=== PATIENT | female | born 1960 | race Caucasian/White ===

== ENCOUNTER 2016-05-25 21:08 | Inpatient (IN) | payer OTHER ==
[~2016-05-25] VITALS: Ht 167.6 cm; Wt 90.5 kg
[~2016-05-25 21:08] MED LIST: IBUP100T33 PO
[2016-05-25] MEDS ORDERED: ACETAMINOPHEN 325 MG TAB PO STA (22:17)
[2016-05-25] MEDS ORDERED: CEFTRIAXONE 1 GM/50 ML (PMX) 50 ML IVPB STA (22:17)
[2016-05-25] MEDS ORDERED: SODIUM CHLORIDE 0.9% 1L BAG IV* STA (22:17)
[2016-05-25] MEDS ORDERED: HYDROmorphONE 1 MG/ML SYG IV STA (22:51)
[2016-05-25] MEDS ORDERED: SOD CHLORIDE 0.9% 1,000 ML IV STA (22:51)
[2016-05-25] MEDS ORDERED: ONDANSETRON 4 MG INJ IV STA (22:51)
[2016-05-25 22:58] LABS: ADD UMIC YES; URINE BILIRUBIN (Dip) NEGATIVE (NEGATIVE); URINE BLOOD (Dip) TRACE (NEGATIVE); URINE GLUCOSE (Dip) NEGATIVE (NEGATIVE); URINE KETONES (Dip) TRACE (NEGATIVE); URINE LEUKOCYTE ESTERASE (Dip) NEGATIVE (NEGATIVE); URINE NITRITE (Dip) NEGATIVE (NEGATIVE); URINE TOTAL PROTEIN (Dip) TRACE (NEGATIVE); URINE UROBILINOGEN (Dip) 1.0 E.U./dL (0.1-1.0)
[2016-05-25] MEDS ORDERED: ERTAPENEM SODIUM 1 GM in SOD CHLORIDE 0.9% 100 ML IVPB ONE (23:00)
[2016-05-25 23:06] LABS: INR 1.1; PROTIME 14.2 Sec (12.2-14.2); PT RATIO 1.1
[2016-05-25 23:07] LABS: PARTIAL THROMBOPLASTIN TIME 33.2 Sec (25.0-35.0)
[2016-05-25 23:08] LABS: BACTERIA,URINE FEW; URINE COLOR YELLOW (YELLOW); URINE RBCS 0-2 /HPF (0)
[2016-05-25 23:18] LABS: BASOPHILS % 0.3 % (0.0-2.0); EOSINOPHILS # 0.2 10^3/ul (0.0-0.5); EOSINOPHILS % 1.6 % (0.0-7.0); HEMATOCRIT 39.7 % (37.0-47.0); HEMOGLOBIN 13.4 g/dl (12.0-16.0); LYMPHOCYTES # 2.6 10^3/ul (0.8-2.9); LYMPHOCYTES % 17.3 % (15.0-51.0); MEAN CORPUSCULAR HEMOGLOBIN 29.9 pg (29.0-33.0); MEAN CORPUSCULAR HGB CONC 33.9 g/dl (32.0-37.0); MEAN CORPUSCULAR VOLUME 88.3 fl (82.0-101.0); MEAN PLATELET VOLUME 9.9 fl (7.4-10.4); MONOCYTE # 1.2 10^3/ul (0.3-0.9); MONOCYTES % 8.1 % (0.0-11.0); NEUTROPHILS % 72.7 % (39.0-77.0); PLATELET COUNT 234 10^3/UL (140-440); RED BLOOD COUNT 4.49 10^6/ul (4.20-5.40); RED CELL DISTRIBUTION WIDTH 13.6 % (11.5-14.5); UNCORRECTED WBC 15.1 10^3/ul (4.8-10.8); WHITE BLOOD COUNT 15.1 10^3/ul (4.8-10.8)
[2016-05-25 23:21] LABS: TROPONIN-I < 0.012 ng/ml (0.00-0.12)
[2016-05-25 23:24] LABS: CONDITION 1
[2016-05-25 23:28] LABS: CHLORIDE 103 mmol/L (97-110); POTASSIUM 3.9 mmol/L (3.5-5.1); SODIUM 141 mmol/L (135-144)
[2016-05-25 23:30] LABS: ANION GAP 15 (8-16); BILIRUBIN,INDIRECT 0.6 mg/dl (0-1.1); BILIRUBIN,TOTAL 0.6 mg/dl (0.2-1.3); CARBON DIOXIDE 27 mmol/L (21-31); CREATININE 0.73 mg/dl (0.44-1.00)
[2016-05-25 23:31] LABS: ALANINE AMINOTRANSFERASE 16 IU/L (13-69); ALBUMIN/GLOBULIN RATIO 1.02; ALKALINE PHOSPHATASE 70 IU/L (42-121); ASPARTATE AMINO TRANSFERASE 14 IU/L (15-46); BLOOD UREA NITROGEN 13 mg/dl (7-20); CALCIUM 9.7 mg/dl (8.4-10.2); GLUCOSE 120 mg/dl (70-220); TOTAL PROTEIN 7.9 g/dl (6.1-8.1)
--- NOTE | 2016-05-26 00:20 | RADRPT ---
PROCEDURE: XR Chest. CLINICAL INDICATION: Sepsis TECHNIQUE: AP portable chest. COMPARISON: None. FINDINGS: The cardiomediastinal silhouette is within normal limits of size ..The lungs are clear without pleur al effusion or focal consolidation. No pneumothorax. The osseous structures and soft tissues are unr emarkable. IMPRESSION: 1. No evidence for active cardiopulmonary disease. RPTAT:AAJJ Fariba Najera Physician Date Time Electronically viewed and signed by Fariba Najera Physician on 05/26/2016 00:20 EVITA/
[2016-05-26] MEDS ORDERED: IOHEXOL 300MG/ML 150 ML BTL ONE (00:23)
[2016-05-26] MEDS ORDERED: SOD CHLORIDE 0.9% 100 ML ONE (00:23)
--- NOTE | 2016-05-26 02:22 | RADRPT ---
PROCEDURE: CT ABDOMEN/PELVIS WITH CONTRAST CLINICAL INDICATION: 56-year-old female with left lower quadrant pain. TECHNIQUE: The study was performed utilizing a [employer] VCT 64-slice CT scanner. Direct axia l sections were obtained through the abdomen and pelvis with the use of 100 cc of Omnipaque-300 pallavi onic intravenous contrast material. Sagittal and coronal reformations were obtained. Automated expos ure control and iterative reconstruction techniques were utilized for this examination. The images were reviewed on a PACS workstation. CTD/vol = 20.2 mGy; Total Exam DLP = 1130.6 mGy-cm. COMPARISON: CT abdomen/pelvis March 17, 2013. FINDINGS: There is mild bibasilar subsegmental atelectasis. There is no evidence for significant pleural effus ion. The liver has a normal size and contour. There is diffuse decreased density throughout the li stefani consistent with fatty infiltration without focal areas of abnormal density or contrast enhanceme nt. No intrahepatic nor extrahepatic biliary ductal dilatation is seen. The gallbladder demonstrates no wall thickening nor pericholecystic fluid. No biliary stones are evident. The pancreas is withou t areas of abnormal attenuation or contrast enhancement. This spleen is identified and has a normal size without abnormal density or contrast enhancement. The adrenal glands are unremarkable. The kid neys are functional bilaterally without abnormal density. No hydroureteronephrosis nor nephrouretero lithiasis is evident. The urinary bladder contains urine. There are small diverticula scattered thro ughout the colon. There is marked thickening of the sigmoid colon with extensive surrounding inflammatory changes and minimal free fluid consistent with acute diverticulitis. The appendix is no t visualized however there is no periappendiceal inflammatory changes. The uterus appears to be mil dly enlarged measuring approximately 11.0 x 5.8 x 6.7 cm and mildly heterogeneous with calcification s identified. The aortoiliac vessels are without aneurysmal dilatation. The osseous structures are i ntact. IMPRESSION: 1. Mild bibasilar subsegmental atelectasis. 2. Diffuse fatty infiltration of the liver. 3. Markedly thickened sigmoid colon with diverticula and extensive surrounding inflammatory changes consistent with acute sigmoid diverticulitis. 4. Mildly enlarged heterogeneous uterus. .Gilbert Michelle, MD, MD Date Time Electronically viewed and signed by .Samir Martinez MD, on 05/26/2016 02:21 .M/
[2016-05-26 03:42] VITALS: TEMP 98.3
[2016-05-26] MEDS ORDERED: SOD CHLORIDE 0.9% 1,000 ML IV SCH (03:46)
--- NOTE | 2016-05-26 03:52 | ERA ---
ER Documentation Chief Complaint Date/Time DATE: 05/26/16 TIME: 03:49 Chief Complaint LLQ pain, intermittent, sharp, 9/10 HPI This is a 56-year-old female who complains of left lower quadrant sharp pain for the past 4-5 days. She has had diarrhea several times a day that is nonbloody. She has nausea but no vomiting. She developed chills and fever at home this morning. No chest pain or shortness of breath no dysuria or hematuria. Pain does not radiate. ROS All systems reviewed and are negative except as per history of present illness. Medications Home Meds Discontinued Reported Medications Ibuprofen (Motrin) 100 Mg Tablet, 600 MG PO PRN 03/17/13 Allergies Allergies: Coded Allergies: No Known Allergies (Verified Allergy, Mild, 05/25/16) PMhx/Soc History of Surgery: Yes (APPY, CSECTION) Anesthesia Reaction: No Hx Neurological Disorder: No Hx Respiratory Disorders: No Hx Cardiac Disorders: No Hx Psychiatric Problems: No Hx Miscellaneous Medical Probl: No Hx Alcohol Use: Yes Hx Substance Use: No Hx Tobacco Use: No (OCCASSIONALLY) Smoking Status: Never smoker FmHx Family History: No coronary disease Physical Exam Vitals Vital Signs Date Time Temp Pulse Resp B/P Pulse Ox O2 Delivery O2 Flow Rate FiO2 05/26/16 03:42 98.3 81 16 147/80 97 Room Air 05/26/16 02:15 83 16 160/69 100 Room Air 05/25/16 23:12 82 16 149/69 100 05/25/16 21:15 100.4 95 17 145/74 97 Physical Exam Const: Well-developed, well-nourished Head: Atraumatic, normocephalic Eyes: Normal Conjunctiva, PERRLA, EOMI, normal sclera, no nystagmus ENT: Normal External Ears, Nose and Mouth, moist mucus membranes. Neck: Full range of motion. No meningismus, no lymphadenopathy. Resp: Clear to auscultation bilaterally, no wheezing, rhonchi, rales Cardio: Regular rate and rhythm, no murmurs, S1 S2 present Abd: Soft, moderate left lower quadrant tenderness, non distended. Normal bowel sounds, no guarding or rebound, no pulsitile abdominal masses or bruits Skin: No petechiae or rashes, no ecchymosis , no maculopapular rash Back: No midline or flank tenderness Ext: No cyanosis, or edema, FROM x 4, normal inspection, neurovascularly intact x 4 Neur: Awake and alert, STR 5/5 x 4, sensation intact x 4, no focal findings, cerebellum intact Psych: Normal Mood and Affect Result Diagram: 05/25/16221905/25/162219 Results 24 hrs Laboratory Tests Test 05/25/16 22:20 05/25/16 22:30 Activated Partial Thromboplast Time 33.2Sec Alanine Aminotransferase (ALT/SGPT) 16IU/L Albumin 4.0g/dl Albumin/Globulin Ratio 1.02 Alkaline Phosphatase 70IU/L Anion Gap 15 Aspartate Amino Transf (AST/SGOT) 14IU/L Basophils # 0.010^3/ul Basophils % 0.3% Blood Urea Nitrogen 13mg/dl Calcium Level 9.7mg/dl Carbon Dioxide Level 27mmol/L Chloride Level 103mmol/L Creatinine 0.73mg/dl Direct Bilirubin 0.00mg/dl Eosinophils # 0.210^3/ul Eosinophils % 1.6% Globulin 3.90g/dl Glucose Level 120mg/dl Hematocrit 39.7% Hemoglobin 13.4g/dl INR International Normalized Ratio 1.10 Indirect Bilirubin 0.6mg/dl Lactic Acid Level 0.7mmol/L Lymphocytes # 2.610^3/ul Lymphocytes % 17.3% Mean Corpuscular Hemoglobin 29.9pg Mean Corpuscular Hemoglobin Concent 33.9g/dl Mean Corpuscular Volume 88.3fl Mean Platelet Volume 9.9fl Monocytes # 1.210^3/ul Monocytes % 8.1% Neutrophils # 11.010^3/ul Neutrophils % 72.7% Nucleated Red Blood Cells # 0.010^3/ul Nucleated Red Blood Cells % 0.0/100WBC Platelet Count 81056^3/UL Potassium Level 3.9mmol/L Prothrombin Time 14.2Sec Prothrombin Time Ratio 1.1 Red Blood Count 4.4910^6/ul Red Cell Distribution Width 13.6% Sodium Level 141mmol/L Total Bilirubin 0.6mg/dl Total Protein 7.9g/dl Troponin I < 0.012ng/ml White Blood Count 15.110^3/ul Urine Bacteria FEW Urine Bilirubin NEGATIVE Urine Calcium Oxalate Crystals FEW Urine Clarity CLEAR Urine Color YELLOW Urine Glucose NEGATIVE% Urine Hemoglobin TRACE Urine Ketones TRACE Urine Leukocyte Esterase NEGATIVE Urine Microscopic RBC 0-2/HPF Urine Microscopic WBC NONE SEEN/HPF Urine Nitrite NEGATIVE Urine Specific Davey 1.025 Urine Total Protein TRACE Urine Urobilinogen 1.0 E.U./dL Urine pH 6.0 Current Medications Medications (Trade) Dose Ordered Sig/Rachna Route PRN Reason Start Time Stop Time Status Last Admin Dose Admin Sodium Chloride (NS) 2,760 ml BOLUS OVER 2 HOURS STAT IV* 05/25/16 22:17 05/25/16 22:51 DC 05/25/16 22:43 Acetaminophen 650 mg 650 mg ONCE STAT PO 05/25/16 22:17 05/25/16 22:18 05/25/16 22:43 Ceftriaxone Sodium 50 ml @ 100 mls/hr ONCE STAT IVPB 05/25/16 22:17 05/25/16 22:51 DC 05/25/16 22:43 Sodium Chloride (NS) 1,000 ml @ 1,000 mls/hr Q1H STAT IV 05/25/16 22:51 05/25/16 23:50 Hydromorphone HCl (Dilaudid) 1 mg ONCE STAT IV 05/25/16 22:51 05/25/16 22:52 05/26/16 02:57 Ondansetron HCl 4 mg 4 mg ONCE STAT IV 05/25/16 22:51 05/25/16 22:52 05/26/16 02:56 Ertapenem/Sodium Chloride (Invanz/NS) 100 ml @ 200 mls/hr ONCE ONCE IVPB 05/25/16 23:00 05/25/16 23:29 IV Flush 10 ml 10 ml STK-MED ONCE .ROUTE 05/26/16 00:23 05/26/16 00:24 DC 05/26/16 00:30 Sodium Chloride (NS) 100 ml @ ud STK-MED ONCE .ROUTE 05/26/16 00:23 05/26/16 00:24 DC 05/26/16 00:30 Iohexol 150 ml 150 ml STK-MED ONCE .ROUTE 05/26/16 00:23 05/26/16 00:24 DC 05/26/16 00:31 Sodium Chloride (NS) 1,000 ml @ 80 mls/hr [id number] IV 05/26/16 03:46 05/26/16 16:15 Ondansetron HCl (Zofran Inj) 4 mg BRIDGE ORDER PRN IV NAUSEA AND/OR VOMITING 05/26/16 04:00 05/27/16 03:59 Acetaminophen (Tylenol Tab) 650 mg ER BRIDGE PRN PO MILD PAIN/FEVER 05/26/16 04:00 05/27/16 03:59 Procedures/MDM PROCEDURE: XR Chest. CLINICAL INDICATION: Sepsis TECHNIQUE: AP portable chest. COMPARISON: None. FINDINGS: The cardiomediastinal silhouette is within normal limits of size ..The lungs are clear without pleural effusion or focal consolidation. No pneumothorax. The osseous structures and soft tissues are unremarkable. IMPRESSION: 1. No evidence for active cardiopulmonary disease. RPTAT:AAJJ Fariba Najera Physician Date Time Electronically viewed and signed by Physician Karen on 05/26/2016 00:20 EVITA/ CC: FRANK LIMON MD PROCEDURE: CT ABDOMEN/PELVIS WITH CONTRAST CLINICAL INDICATION: 56-year-old female with left lower quadrant pain. TECHNIQUE: The study was performed utilizing a [employer] VCT 64-slice CT scanner. Direct axial sections were obtained through the abdomen and pelvis with the use of 100 cc of Omnipaque-300 nonionic intravenous contrast material. Sagittal and coronal reformations were obtained. Automated exposure control and iterative reconstruction techniques were utilized for this examination. The images were reviewed on a PACS workstation. CTD/vol = 20.2 mGy; Total Exam DLP = 1130.6 mGy-cm. COMPARISON: CT abdomen/pelvis March 17, 2013. FINDINGS: There is mild bibasilar subsegmental atelectasis. There is no evidence for significant pleural effusion. The liver has a normal size and contour. There is diffuse decreased density throughout the liver consistent with fatty infiltration without focal areas of abnormal density or contrast enhancement. No intrahepatic nor extrahepatic biliary ductal dilatation is seen. The gallbladder demonstrates no wall thickening nor pericholecystic fluid. No biliary stones are evident. The pancreas is without areas of abnormal attenuation or contrast enhancement. This spleen is identified and has a normal size without abnormal density or contrast enhancement. The adrenal glands are unremarkable. The kidneys are functional bilaterally without abnormal density. No hydroureteronephrosis nor nephroureterolithiasis is evident. The urinary bladder contains urine. There are small diverticula scattered throughout the colon. There is marked thickening of the sigmoid colon with extensive surrounding inflammatory changes and minimal free fluid consistent with acute diverticulitis. The appendix is not visualized however there is no periappendiceal inflammatory changes. The uterus appears to be mildly enlarged measuring approximately 11.0 x 5.8 x 6.7 cm and mildly heterogeneous with calcifications identified. The aortoiliac vessels are without aneurysmal dilatation. The osseous structures are intact. IMPRESSION: 1. Mild bibasilar subsegmental atelectasis. 2. Diffuse fatty infiltration of the liver. 3. Markedly thickened sigmoid colon with diverticula and extensive surrounding inflammatory changes consistent with acute sigmoid diverticulitis. 4. Mildly enlarged heterogeneous uterus. .Samir Martinez MD, MD Date Time Electronically viewed and signed by .Samir Martinez MD, MD on 05/26/2016 02:21 .M/ CC: SELENA MARTINEZ DO Patient was given Invanz 1 g IV. Will admit to the hospital for observation and antibiotic therapy due to severe diverticulitis, fever, elevated white blood count. The patient has a higher risk of perforation due to the severity of her diverticulitis on CT scan Departure Diagnosis: Primary Impression: Diverticulitis large intestine w/o perforation or abscess w/o bleeding Condition: Stable SELENA MARTINEZ DO May 26, 2016 03:52
[2016-05-26] MEDS ORDERED: ONDANSETRON 4 MG INJ IV PRN ×2 (04:00→06:30)
[2016-05-26] MEDS ORDERED: ACETAMINOPHEN 325 MG TAB PO PRN (04:00)
[2016-05-26] MEDS ORDERED: ONDANSETRON 4 MG INJ IV STA (04:11)
[2016-05-26] MEDS ORDERED: ACETAMINOPHEN 500 MG TAB PO STA (04:11)
[2016-05-26 05:53] VITALS: Ht 167.6 cm; Wt 90.5 kg
[2016-05-26 05:55] VITALS: BP 133/75; PULSE 80; RESP 20
[2016-05-26] MEDS ORDERED: morphine 2 MG INJ IV PRN (06:00)
[2016-05-26] MEDS: DEXTROSE 5%-0.45% NACL 1,000 ML IV SCH ×2 (06:09→06:10)
[2016-05-26] MEDS ORDERED: NACL 0.9% 3 ML SYG IV SCH (06:30)
[2016-05-26] MEDS: D5W-0.45 NACL + KCL 20 MEQ 1,000 ML IV SCH ×2 (06:47→16:46)
[2016-05-26 07:22] VITALS: BP 155/73; RESP 16
--- NOTE | 2016-05-26 08:21 | HP ---
DATE OF ADMISSION: 05/26/2016 CHIEF COMPLAINT: Abdominal pain. HISTORY OF PRESENT ILLNESS: The patient is a 56-year-old female with a history of abdominal pain in the past. Etiology is unclear. The patient comes in complaining of left lower quadrant sharp pain for the past 4 or 5 days. She does have some diarrhea. She denies any nausea or vomiting. She st ates that she developed chills and fever at home this morning. She denies any chest pain or shortne ss of breath. No dysuria. Pain is localized to the left lower quadrant mostly at bedtime. She tabor s have diffuse abdominal pain. When I asked her if she had diverticulitis in the past, she states t hat she does believe she has and was given antibiotics for that. She was never hospitalized. In e ED, the patient had a CT abdomen and pelvis that showed acute sigmoid diverticulitis. She has no other complaints at this time. PAST MEDICAL HISTORY: Episodes of abdominal pain, the last time approximately a year ago, with no k nown formal diagnosis, although she may have had diverticulitis as she recognizes that term. Once a gain, she has never been admitted for IV antibiotics in the past. PAST SURGICAL HISTORY: Appendectomy as a child and . HOME MEDICATIONS: None. ALLERGIES: NO KNOWN DRUG ALLERGIES. FAMILY HISTORY: Mother with stroke, heart issues. SOCIAL HISTORY: Denies alcohol, tobacco, or drug abuse. REVIEW OF SYSTEMS: A 12-point review of systems negative except for that discussed in HPI. PHYSICAL EXAMINATION: VITAL SIGNS: Temperature is 98.3, pulse 80, respiration is 20, BP is 132/75, saturation 96% on room air. GENERAL: No acute distress, alert and oriented. HEENT: Normocephalic, atraumatic. LUNGS: Clear to auscultation. CARDIOVASCULAR: Regular rate and rhythm. ABDOMEN: Nondistended, soft. Tenderness to palpation in the left lower quadrant. EXTREMITIES: No clubbing, cyanosis, or edema. LABORATORIES: White count 16.1, hemoglobin is 13.4, platelets of 234. Chemistry within normal limi ts. AST slightly low at 14, globulin is high at 3.9. INR is 1.10. UA is within normal limits exce pt for trace ketones. DIAGNOSTICS: Chest x-ray shows no evidence of active cardiopulmonary disease. Abdominopelvic CT sh ows mild bibasilar subsegmental atelectasis, fatty liver, acute sigmoid diverticulitis, mildly enlar ged heterogeneous uterus. ASSESSMENT AND PLAN: 1. Acute sigmoid diverticulitis with leukocytosis. We will treat with Zosyn IV. We will keep n.p. o. except for ice chips. We will give morphine p.r.n. pain. 2. Prophylaxis. SCDs. Dictated By: OBEY FIERRO MD BS/NTS Conf#: [id number] DID#: [id number]
[2016-05-26] MEDS: ACETAMINOPHEN 325 MG TAB PO PRN ×2 (08:45→18:17)
[2016-05-26] MEDS ORDERED: hydrALAzine 20 MG INJ IV PRN (09:00)
--- NOTE | 2016-05-26 10:22 | QN ---
Documentation Comment The patient was seen. Labs reviewed. Plan of care was explained to the patient. Case discussed with Dr. Gallego. JADEN PALUMBO NP May 26, 2016 10:22
[2016-05-26] MEDS: PIPER-TAZO 3.375 GM IV (PMX) 100 ML IVPB SCH ×3 (12:11→23:54)
[2016-05-26 18:59] VITALS: BP 145/71; RESP 18
[2016-05-27] MEDS: D5W-0.45 NACL + KCL 20 MEQ 1,000 ML IV SCH ×5 (02:46→22:19)
[2016-05-27 04:59] LABS: BASOPHIL # 0.1 10^3/ul (0.0-0.1); BASOPHILS % 0.7 % (0.0-2.0); EOSINOPHILS # 0.5 10^3/ul (0.0-0.5); EOSINOPHILS % 5.7 % (0.0-7.0); HEMATOCRIT 36.7 % (37.0-47.0); HEMOGLOBIN 12.4 g/dl (12.0-16.0); LYMPHOCYTES # 2.1 10^3/ul (0.8-2.9); LYMPHOCYTES % 25.6 % (15.0-51.0); MEAN CORPUSCULAR HEMOGLOBIN 29.9 pg (29.0-33.0); MEAN CORPUSCULAR HGB CONC 33.7 g/dl (32.0-37.0); MEAN CORPUSCULAR VOLUME 88.7 fl (82.0-101.0); MEAN PLATELET VOLUME 9.6 fl (7.4-10.4); MONOCYTE # 0.6 10^3/ul (0.3-0.9); MONOCYTES % 7.7 % (0.0-11.0); NEUTROPHIL # 4.9 10^3/ul (1.6-7.5); NEUTROPHILS % 60.3 % (39.0-77.0); PLATELET COUNT 234 10^3/UL (140-440); RED BLOOD COUNT 4.13 10^6/ul (4.20-5.40); RED CELL DISTRIBUTION WIDTH 13.4 % (11.5-14.5); UNCORRECTED WBC 8.2 10^3/ul (4.8-10.8); WHITE BLOOD COUNT 8.2 10^3/ul (4.8-10.8)
[2016-05-27 05:05] LABS: CONDITION 1
[2016-05-27 05:13] LABS: CREATININE 0.74 mg/dl (0.44-1.00)
[2016-05-27 05:14] LABS: CALCIUM 8.8 mg/dl (8.4-10.2); MAGNESIUM 2.1 mg/dl (1.7-2.5); PHOSPHORUS 3.4 mg/dl (2.5-4.9)
[2016-05-27] MEDS: PIPER-TAZO 3.375 GM IV (PMX) 100 ML IVPB SCH ×3 (06:16→17:37)
[2016-05-27 07:47] VITALS: BP 143/69; RESP 18
[2016-05-27] MEDS ORDERED: INFLUENZA VIRUS VACCINE 0.5 ML (DISPENSING) IM* ONE (09:00)
--- NOTE | 2016-05-27 16:06 | PN ---
Date/Time of Note Date/Time of Note DATE: 05/27/16 TIME: 15:57 Assessment/Plan VTE Prophylaxis VTE Prophylaxis Intervention: SCD's Lines/Catheters IV Catheter Type (from Nrsg): Peripheral IV Urinary Cath still in place: No Assessment/Plan Chief Complaint/Hosp Course Assessment and plan 1. Acute sigmoid diverticulitis. Continue on antibiotic therapy. We'll keep npo for now. We'll advance diet once pain subsided. DVT prophylaxis: SCDs Disposition and plan: Await for clinical improvement of diverticulitis. Continue antibiotic therapy. We'll advance diet once pain subsides. Discussed plan of care with Dr. Franz Problems: Subjective 24 Hr Interval Summary Free Text/Dictation still with some reports of abd pain on left abd quadrant Exam/Review of Systems Vital Signs Vitals Vital Signs Date Time Temp Pulse Resp B/P Pulse Ox O2 Delivery O2 Flow Rate FiO2 05/27/16 07:47 98.0 71 18 143/69 95 05/26/16 05:55 Room Air Intake and Output 05/26/16 05/26/16 05/27/16 15:00 23:00 07:00 Intake Total 1200 ml 1400 ml Balance 1200 ml 1400 ml Exam General: No acute signs or symptoms of distress Eyes: pupils equal round, Anicteric sclera Neck: Supple nontender, no JVD Cardiac: S1, S2 auscultated, regular rhythm and rate Pulmonary: No coarse rhonchi or breathing auscultated GI: tender on palpation left abd quadrant Extremities: No edema bilateral lower extremities Skin: Clean dry and intact Neurologic: Alert to person place and time and situation Results Result Diagram: 05/27/16 0410 05/27/16 0410 Results 24 hrs Laboratory Tests Test 05/27/16 04:10 Anion Gap 12 Basophils # 0.1 Basophils % 0.7 Blood Urea Nitrogen 8 Calcium Level 8.8 Carbon Dioxide Level 28 Chloride Level 107 Cholesterol Level 149 Cholesterol/HDL Ratio 4.0 Creatinine 0.74 Eosinophils # 0.5 Eosinophils % 5.7 Glucose Level 119 HDL Cholesterol 37 Hematocrit 36.7 L Hemoglobin 12.4 Hemoglobin A1c 6.1 H LDL Cholesterol, Calculated 93 Lymphocytes # 2.1 Lymphocytes % 25.6 Magnesium Level 2.1 Mean Corpuscular Hemoglobin 29.9 Mean Corpuscular Hemoglobin Concent 33.7 Mean Corpuscular Volume 88.7 Mean Platelet Volume 9.6 Monocytes # 0.6 Monocytes % 7.7 Neutrophils # 4.9 Neutrophils % 60.3 Nucleated Red Blood Cells # 0.0 Nucleated Red Blood Cells % 0.0 Phosphorus Level 3.4 Platelet Count 234 Potassium Level 4.0 Red Blood Count 4.13 L Red Cell Distribution Width 13.4 Sodium Level 143 Triglycerides Level 97 White Blood Count 8.2 # Medications Medications Current Medications Morphine Sulfate 2 mg 2 mg Q3H PRN IV PAIN; Start 05/26/16 at 06:00 Potassium Chloride/Dextrose/ Sod Cl (D5-1/2ns + KCl 20 Meq) 1,000 ml @ 100 mls/ hr Q10H IV Last administered on 05/27/16 15:01; Admin Dose 100 MLS/HR; Start 05/26/16 at 06:19 Ondansetron HCl 4 mg 4 mg Q6H PRN IV NAUSEA AND/OR VOMITING; Start 05/26/16 at 06:30 Piperacillin Sod/ Tazobactam Sod (Zosyn 3.375gm/ 100 ml (Pmx)) 100 ml @ 200 mls /hr Q6 IVPB Last administered on 05/27/16 11:45; Admin Dose 200 MLS/HR; Start 05/26/16 at 12:00 Acetaminophen (Tylenol Tab) 650 mg Q6H PRN PO PAIN AND OR ELEVATED TEMP Last administered on 05/26/16 18:17; Admin Dose 650 MG; Start 05/26/16 at 08:20 Hydralazine HCl (Apresoline) 10 mg Q6H PRN IV SBP>160; Start 05/26/16 at 09:00 MIREYA SUAZO May 27, 2016 16:06
[2016-05-27] MEDS: ACETAMINOPHEN 325 MG TAB PO PRN (16:46)
[2016-05-27 19:46] VITALS: BP 169/72; RESP 18
[2016-05-27 22:14] VITALS: BP 144/85; PULSE 65; RESP 20
[2016-05-28] MEDS: PIPER-TAZO 3.375 GM IV (PMX) 100 ML IVPB SCH ×3 (00:25→11:25)
[2016-05-28] MEDS: ACETAMINOPHEN 325 MG TAB PO PRN ×2 (00:28→13:37)
[2016-05-28] MEDS: D5W-0.45 NACL + KCL 20 MEQ 1,000 ML IV SCH (03:46)
[2016-05-28 07:48] VITALS: BP 160/68; RESP 18
[2016-05-28] MEDS ORDERED: CIPR500T4 PO (11:16)
[2016-05-28] MEDS ORDERED: METR500T14 PO (11:16)
[2016-05-28] MEDS ORDERED: TRAM50TA2 PO (11:16)
--- NOTE | 2016-05-28 11:34 | PDOCDIS ---
Discharge Instructions DIAGNOSIS Discharge Diagnosis: 1. Acute Diverticulitis CONDITION Patient Condition: Stable HOME CARE INSTRUCTIONS: Diet Instructions: Low Fat /Cholesterol FOLLOW UP/APPOINTMENTS Appointments 1. Follow up with your primary care provider in one week MIREYA SUAZO May 28, 2016 11:34
--- NOTE | 2016-05-28 15:13 | DS ---
Date/Time of Note Date/Time of Note DATE: 05/28/16 TIME: 15:08 Discharge Summary Admission/Discharge Info Admit Date/Time May 26, 2016 at 12:29 Discharge Date/Time Patient Condition: Stable Hospital Course This is a 56-year-old female with history of abdominal pain with unknown etiology came to [facility] due to reports of left lower quadrant abdominal pain for 4-5 days duration. She also reported having some diarrhea associated with it. She denied any nausea vomiting. She did come to [facility] and did have CT scan of the abdomen that did show her to have acute sigmoid diverticulitis. Patient was placed on npo diet initially. She was also placed on IV hydration. She was pleasant antibiotics and she did have good response to regimen. During her course of stay she did improve. Her abdominal pain did subside and we were able to start her on a regular diet. She was able to tolerate this well. The plan of care was discussed with the patient and patient did verbalize her understanding. On the day of discharge patient was in stable condition Discussed plan of care with Dr. Franz Discharge process time is 40 minutes Disposition: Home Home Meds Active Scripts Metronidazole (Flagyl) 500 Mg Tab, 500 MG PO Q8, #21 TAB Prov:MIREYA SUAZO 05/28/16 Ciprofloxacin Hcl* (Ciprofloxacin Hcl*) 500 Mg Tablet, 500 MG PO BID, #14 TAB Prov:MIREYA SUAZO 05/28/16 Discontinued Reported Medications Ibuprofen (Motrin) 100 Mg Tablet, 600 MG PO PRN 03/17/13 Follow-up Plan CONDITION Patient Condition: Stable HOME CARE INSTRUCTIONS: Diet Instructions: Low Fat /Cholesterol FOLLOW UP/APPOINTMENTS Appointments 1. Follow up with your primary care provider in one week MIREYA SUAZO May 28, 2016 15:13
== END 2016-05-28 15:50 | disposition home or self-care (01) | DRG 392 ==
LOC: E/R 21:08 → MS1 05-26 03:46 → OBSVTOIN 05-26 12:29
PROVIDERS: ADMIT Internal Medicine; ATTEND Internal Medicine
DX: K57.32 Diverticulitis of large intestine without perforation or abscess without bleeding (principal)
CPT/HCPCS: 36415; 71010; 74177; 80048; 80053; 80061; 81001; 81003; 83036; 83605; 83735; 84100; 84484; 85025; 85610; 85730; 87040; 87086; 90686; 93005; 96374; 96375; G0378; J0360; J0696; J1170; J1335; J2405; J2543; J3480; J7030; J7042; Q9967

== ENCOUNTER 2018-11-30 08:35 | Day surgery (SDC) | payer OTHER ==
[~2018-11-30] VITALS: Ht 162.6 cm; Wt 85.7 kg
[~2018-11-30 08:35] MED LIST changes: +CIPR500T4 PO; -IBUP100T33 PO; +METR-121 PO; +TRAM50TA2 PO
[2018-11-30 10:25] VITALS: Ht 162.6 cm; Wt 85.7 kg
[2018-11-30 10:56] VITALS: PULSE 74
[2018-11-30 13:10] VITALS: BP 108/65; RESP 20
== END 2018-11-30 15:58 | disposition home or self-care (01) ==
LOC: GIL 08:35
PROVIDERS: ATTEND Internal Medicine Gastroenterology
DX: Z12.11 Encounter for screening for malignant neoplasm of colon (principal); D12.5 Benign neoplasm of sigmoid colon; K57.30 Diverticulosis of large intestine without perforation or abscess without bleeding
CPT/HCPCS: 45380; 88305; Z7610